=== PATIENT | female | born 1990 | race Caucasian/White ===

== ENCOUNTER 2018-10-08 18:07 | Emergency (ER) | payer MEDICAID ==
[~2018-10-08] VITALS: Ht 167.6 cm; Wt 80.7 kg
[2018-10-08 18:24] VITALS: Ht 167.6 cm; Wt 80.7 kg
[2018-10-08 19:33] VITALS: BP 122/73
== END 2018-10-08 19:33 | disposition home or self-care (01) ==
LOC: ED 18:07
DX: O26.891 Other specified pregnancy related conditions, first trimester (principal); N64.4 Mastodynia; Z98.890 Other specified postprocedural states; Z3A.00 Weeks of gestation of pregnancy not specified

== ENCOUNTER 2018-11-07 17:59 | Emergency (ER) | payer MEDICAID ==
[~2018-11-07] VITALS: Ht 165.1 cm; Wt 78.7 kg
[2018-11-07 18:15] VITALS: Ht 165.1 cm; Wt 78.7 kg
[2018-11-07 20:32] VITALS: BP 106/66
== END 2018-11-07 20:32 | disposition home or self-care (01) ==
LOC: ED 17:59
DX: O26.891 Other specified pregnancy related conditions, first trimester (principal); G44.209 Tension-type headache, unspecified, not intractable; O21.9 Vomiting of pregnancy, unspecified; Z3A.10 10 weeks gestation of pregnancy
CPT/HCPCS: J1200; J2765; J7030